=== PATIENT | male | born 1990 | race Caucasian/White ===

== ENCOUNTER 2025-03-27 20:35 | Emergency (ER) | payer MEDICARE, SELFPAY ==
--- NOTE | 2025-03-27 21:07 | ED.GENMED ---
History of Present Illness
General
Chief Complaint: Suicidal Ideation
Source: patient and family
Exam Limitations: none
Time Seen by Provider: 03/27/25 20:49
Nursing documentation reviewed up to this point in time: agreed with
History of Present Illness
History of Present Illness:
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
non-smoker
Past History
Past History
ED Past Medical History: Psychiatric
Social History
Tobacco: Non-smoker
Alcohol: None
Drug: None
Personal: Single
Living: with family
Employment: Employed
Review of Systems
Review of Systems
All Other Systems: Not applicable
Psychiatric: Reports depression, anxiety and suicidal
Phy Exam
Physical Exam
Physical Exam:
Physical Exam
General: no apparent distress, not acutely ill
Neck: No jaundice
Heart: s1/s2 regular rate and rhythm, no murmur. equal radial pulses.
Lungs: no acute respiratory distress. clear bilaterally
Abdomen: Not tender
Neuro: alert and oriented. no focal neurological deficits
Skin: no rash
Psychiatric: Flat affect cooperative admits to depression and suicidal thoughts without specific plan
Extremities: no edema.
Course
Orders/Labs/Results
Orders:
Orders
03/27/25 21:56
Crisis Consult Urgent
Reason for Consult: SI
Vital Signs
Initial and Last Documented VS:
Initial Vital Signs
Pulse Ox
99
03/27/25 21:10
Last Documented Vital Signs
Pulse Ox
99
03/27/25 21:10
MDM/Problems Addressed
Differential Diagnosis Includes:
Depression anxiety suicidal ideation
MDM/Problems Addressed:
Depression anxiety suicidal ideation
Chronic conditions affecting care: Psychiatric illness
Acute Exacerbation and/or Progression of Chronic Illness: Psychiatric illness
*Pulse Oximetry
SaO2: 99
Oxygen Mode of Delivery: Room air
Patient hypoxic: no
*Critical Care Note
Total Time (30-74mins, 75-104mins- exclusive of procedures): Not Applicable
Update Note
Update Note:
11 PM patient cleared by crisis
ED Attending Note
-
Portions of this chart may have been created with voice recognition software.� Occasional wrong word or��sound alike� substitutions may have occurred due to the inherent limitations of voice recognition software.
Discharge Plan
Departure
Patient Disposition: Home (Routine Discharge)
Date of Disposition: 03/27/25
Time of Disposition: 22:51
Patient with high blood pressure during this ER visit?: No
Condition: Good
Discharge Problem:
Depression
Instructions: Depression, Adult (DC), Suicide Prevention
Activity Restrictions/Additional Instructions:
Follow-up with your therapist and the resources provided to you by Tiesha Good
Interventions
Interventions:
*Risk Screen - Suicide Last Done: 03/27/25 20:39
*General Assessment Last Done: 03/27/25 20:39
*Neglect/Abuse Screening Last Done: 03/27/25 20:39
ED-Psychological Assessment Last Done: 03/27/25 21:00
Discharge Date and Time
Print Language: [id number]
== END 2025-03-27 23:16 | disposition home or self-care (01) ==
LOC: EMR 20:35
PROVIDERS: EMERGENCY PHYSICIAN Emergency Medicine
DX: F32.A Depression, unspecified (principal); F41.9 Anxiety disorder, unspecified
CPT/HCPCS: 99283